=== PATIENT | male | born 1985 | race Caucasian/White ===

== ENCOUNTER 2016-11-17 00:31 | Emergency (ER) | payer BC, OTHER ==
[2016-11-17 00:40] VITALS: BP 138/90
[2016-11-17] MEDS ORDERED: Ondansetron 4 MG Tab.DIS PO ONE (01:23)
[2016-11-17] MEDS ORDERED: Ketorolac 60 MG/2 ML SDV IM ONE (01:23)
[2016-11-17] MEDS ORDERED: Tamsulosin 0.4 MG Cap.ER PO ONE (01:24)
[2016-11-17] MEDS ORDERED: HYDROmorphone 1 MG/ML Syringe IM ONE (01:24)
--- NOTE | 2016-11-17 01:25 | EDM.PDOC ---
ED HPI GENERAL MEDICAL PROBLEM - General Chief Complaint: Back Pain or Injury Stated Complaint: back pain Time Seen by Provider: 11/17/16 01:10 Source of Information: Reports: Patient History Limitations: Reports: No Limitations - History of Present Illness INITIAL COMMENTS - FREE TEXT/NARRATIVE: Patient woken from sleep with sudden left lower back pain. Pain was severe, . Episode of emesis. Now 09/29. Had similar episode 2011. At that time it was thought to be due to musculo-skeletal cause and eventually resolved. Denies urinary changes such as frequency or hematuria. No bowel changes. No abdominal pain. Pain does not radiate. No numbness/tingling or neuro changes. No recent injuries. Denies other chronic health problems. Left Lower Back Pain Score (Numeric/FACES): 8 - Related Data Allergies Allergy/AdvReac Type Severity Reaction Status Date / Time No Known Allergies Allergy Verified 11/17/16 00:32 Home Meds: Home Meds Acetaminophen 1,000 mg PO DAILY 11/17/16 [History] Acetaminophen/oxyCODONE [Percocet 325-5 MG] 1 tab PO Q6H #20 tablet 11/17/16 [Rx ] Ibuprofen [Ibuprofen Ib] 600 mg PO DAILY PRN 11/17/16 [History] Ketorolac [Toradol] 10 mg PO Q6H PRN #20 tablet 11/17/16 [Rx] Ondansetron [Zofran ODT] 4 mg PO Q6H PRN #10 tab.dis 11/17/16 [Rx] Tamsulosin [Flomax] 0.4 mg PO DAILY #10 cap.er 11/17/16 [Rx] Past Medical History Musculoskeletal History: Reports: Other (See Below) (previous episodes of back pain) ED ROS GENERAL - Review of Systems Review Of Systems: See Below Constitutional: Reports: No Symptoms HEENT: Reports: No Symptoms Respiratory: Reports: No Symptoms Cardiovascular: Reports: No Symptoms Endocrine: Reports: No Symptoms GI/Abdominal: Reports: Nausea, Vomiting. Denies: Abdominal Pain, Constipation, Diarrhea : Reports: Flank Pain. Denies: Dysuria, Frequency, Hematuria, Incontinence, Pain, Urgency, Urinary Retention Musculoskeletal: Reports: Back Pain Skin: Reports: No Symptoms Neurological: Reports: No Symptoms Psychiatric: Reports: No Symptoms Hematologic/Lymphatic: Reports: No Symptoms ED EXAM,LOWER BACK PAIN/INJURY - Physical Exam Exam: See Below Exam Limited By: No Limitations General Appearance: Alert, WD/WN, Moderate Distress Eye Exam: Bilateral Eye: EOMI, PERRL Ears: Normal External Exam Nose: Normal Inspection Throat/Mouth: Normal Inspection, Normal Lips, Normal Voice, No Airway Compromise Head: Atraumatic, Normocephalic Neck: Supple, Non-Tender Respiratory/Chest: No Respiratory Distress, Lungs Clear, Normal Breath Sounds, No Accessory Muscle Use Cardiovascular: Normal Peripheral Pulses, Regular Rate, Rhythm, No Edema, No Murmur GI/Abdominal: Normal Bowel Sounds, Soft, Non-Tender, No Distention, No Mass (Male) Exam: Deferred Rectal (Males) Exam: Deferred Back Exam: CVA Tenderness (L). No: Muscle Spasm, Paraspinal Tenderness, Vertebral Tenderness Extremities: Normal Inspection, Normal Range of Motion, Non-Tender, No Pedal Edema, Normal Capillary Refill Neurological: Alert, Normal Mood/Affect, Normal Gait, No Motor/Sensory Deficits , Oriented x 3 Psychiatric: Normal Affect, Normal Mood Skin Exam: Warm, Dry, Intact, Normal Color Course - Vital Signs Last Recorded V/S: Last Vital Signs Temp 36.6 C 11/17/16 00:39 Pulse 83 11/17/16 00:39 Resp 20 11/17/16 00:39 BP 138/90 11/17/16 00:39 Pulse Ox 98 11/17/16 00:39 - Orders/Labs/Meds Orders: Active Orders 24 hr Category Date Time Status Obtain Past Medical Record [OM.PC] Routine Oth 11/17/16 00:44 Active Labs: Laboratory Tests 11/17/16 Range/Units 00:47 Specimen Type Urincc Urine Color Yellow Urine Appearance Slightly cloudy Urine pH 5.5 (5.0-9.0) Ur Specific Mcguffey 1.025 (1.005-1.030) Urine Protein Trace H (NEGATIVE) mg/dL Urine Glucose (UA) Negative (NEGATIVE) mg/dL Urine Ketones Negative (NEGATIVE) mg/dL Urine Occult Blood Large H (NEGATIVE) Urine Nitrite Negative (NEGATIVE) Urine Bilirubin Negative (NEGATIVE) Urine Urobilinogen 0.2 (0.2-1.0) E.U./dL Ur Leukocyte Esterase Negative (NEGATIVE) Urine RBC 75-100 H /HPF Urine WBC 0-5 /HPF Ur Epithelial Cells Occasional /LPF Urine Bacteria Occasional (NONE TO FEW) /HPF Hyaline Casts Rare H (NEGATIVE) /LPF Urine Mucus Few H (NEGATIVE) /LPF Meds: Medications Discontinued Medications Generic Name Dose Route Start Last Admin Trade Name Freq PRN Reason Stop Dose Admin Hydromorphone HCl 1 mg 11/17/16 01:24 11/17/16 01:34 Dilaudid IM 11/17/16 01:25 1 mg ONETIME ONE Administration Ketorolac Tromethamine 60 mg 11/17/16 01:23 11/17/16 01:33 Toradol IM 11/17/16 01:24 60 mg ONETIME ONE Administration Ondansetron HCl 4 mg 11/17/16 01:23 11/17/16 01:32 Zofran Odt PO 11/17/16 01:24 4 mg ONETIME ONE Administration Tamsulosin HCl 0.4 mg 11/17/16 01:24 11/17/16 01:32 Flomax PO 11/17/16 01:25 0.4 mg ONETIME ONE Administration - Re-Assessments/Exams Free Text/Narrative Re-Assessment/Exam: 11/17/16 01:31 UA showed large amount of blood. Strongly suspect kidney stone. Patient declines having a CT performed at this time. Declines IV hydration. Would like to get medication for nausea and pain and go home. Agrees to strain urine. Extensive precautions discussed prior to discharge. He knows that CT is recommended if he continues to have pain and does not pass the stone within the next few days. 11/17/16 01:46 Cautioned not to use other NSAIDs while using Toradol. Sent home with take home pack of Toradol and Phenergan. Departure - Departure Time of Disposition: 01:47 Disposition: Home, Self-Care 01 Condition: Good Clinical Impression: Left low back pain Qualifiers: Chronicity: acute Sciatica presence: without sciatica Qualified Code(s): M54.5 - Low back pain Clinical Impression: (Ruled Out): Left flank pain - Discharge Information Prescriptions: Acetaminophen/oxyCODONE [Percocet 325-5 MG] 1 tab PO Q6H #20 tablet Ketorolac [Toradol] 10 mg PO Q6H PRN #20 tablet PRN Reason: Pain Ondansetron [Zofran ODT] 4 mg PO Q6H PRN #10 tab.dis PRN Reason: Nausea Tamsulosin [Flomax] 0.4 mg PO DAILY #10 cap.er Instructions: Renal Colic, [id number], Kidney Stones, [id number] Referrals: PCP,None [Primary Care Provider] - Forms: ED Department Discharge Additional Instructions: At that point in time, we strongly suspect that you are having symptoms consistent with having a kidney stone. Strain urine to screen for stones. If you find any, save them and bring them to you doctor to have them analyzed. Keep well hydrated. Drink plenty of water to help flush your system. If pain does not resolve/you don't pass a stone within the next 2 days, recommend CT study to look for a stone and if one is found, determine how large it is. Sometimes they are too large to pass on their own. Sometimes the pain is severe enough and nausea is severe enough that you need to be admitted to the hospital. Return for re-evaluation if things are worsening. No Motrin/ibuprofen/Aleve while using Toradol. - My Orders Last 24 Hours: My Active Orders 11/17/16 00:44 Obtain Past Medical Record [OM.PC] Routine - Assessment/Plan Last 24 Hours: My Active Orders 11/17/16 00:44 Obtain Past Medical Record [OM.PC] Routine
== END 2016-11-17 02:10 | disposition home or self-care (01) ==
LOC: LL.ED 00:31
DX: M54.5 Low back pain (principal)
CPT/HCPCS: 81001; 96372; 99284; A9270; J1170; J1885

== ENCOUNTER 2017-02-14 09:47 | Emergency (ER) | payer OTHER ==
--- NOTE | 2017-02-14 09:55 | EDM.PDOC ---
ED HPI GENERAL MEDICAL PROBLEM - General Chief Complaint: Laceration Stated Complaint: i cut my hand Time Seen by Provider: 02/14/17 09:50 Source of Information: Reports: Family (), Old Records ([facility] chart/EMR) History Limitations: Reports: No Limitations - History of Present Illness INITIAL COMMENTS - FREE TEXT/NARRATIVE: The patient was brought to the emergency room by his via private automobile for evaluation of the laceration of his left hand, which he cut on a piece of broken glass in the trash at home at about 09:30 a.m. this morning. No history of known specific foreign body, paresthesias, neurological deficits, or other complaints or injuries. The patient is right-handed. He is uncertain when he had his last tetanus booster with possible tetanus booster about 7 years ago. The patient denies any chest pain/pressure, heart flutter, dizziness, orthostasis, orthopnea, diaphoresis, paresthesias, recent decreased exercise tolerance, or any other anginal-type symptoms. No recent history of abdominal pain, heartburn, nausea, diarrhea, melena, gross hematochezia, or any food intolerance, including fatty foods, etc.. The patient also denies any recent fever, cough, wheezing, dyspnea, etc.. Onset: Today, Sudden Onset Date: 02/14/17 Onset Time: 09:30 Duration: Constant Location: Reports: Upper Extremity, Left. Denies: Head, Face, Neck, Chest, Abdomen, Back, Pelvis, Upper Extremity, Right, Radiates to Quality: Reports: Ache, Throbbing Severity: Mild Improves with: Reports: None Worsens with: Reports: None Context: Reports: Trauma (As above) Associated Symptoms: Denies: Confusion, Chest Pain, Cough, Diaphoresis, Fever/ Chills, Headaches, Loss of Appetite, Malaise, Nausea/Vomiting, Seizure, Shortness of Breath, Syncope Treatments GANDY DANCER: Reports: Other (see below) (Wound was washed with tap water prior to arrival). Denies: Acetaminophen Left Head Pain Score (Numeric/FACES): 1 - Related Data Allergies Allergy/AdvReac Type Severity Reaction Status Date / Time No Known Allergies Allergy Verified 11/17/16 17:41 Past Medical History HEENT History: Reports: None. Denies: Allergic Rhinitis, Hard of Hearing, Impaired Vision, Retinal Detachment Cardiovascular History: Denies: Hypertension Genitourinary History: Reports: Renal Calculus, Other (See Below) Other Genitourinary History: Left-sided urolithiasis on 11/17/16 with spontaneous passage Musculoskeletal History: Reports: Arthritis, Back Pain, Chronic, Fracture, Osteoarthritis, Other (See Below) Other Musculoskeletal History: Right mid radial ulnar fracture at age 11 with requiring reduction under sedation; recurrent right knee dislocation last in January 2014 Endocrine/Metabolic History: Reports: Obesity/BMI 30+ Hematologic History: Reports: None. Denies: Anemia, Blood Transfusion(s), Iron Deficiency - Infectious Disease History Infectious Disease History: Reports: Chicken Pox - Past Imaging History Past Imaging History: Reports: CAT Scan (CT of the abdomen and pelvis using stone protocol on 11/09/16) Social & Family History - Family History Cardiac: Reports: Hypertension, Other (See Below) Other Cardiac Family History: Father with hypertension - Tobacco Use Smoking Status *Q: Never Smoker Tobacco Use Within Last Twelve Months: No Used Tobacco, but Quit: No Smoking Cessation Information Provided To Patient: No Second Hand Smoke Exposure: No Second Hand Smoke Education Provided: No - Caffeine Use Caffeine Use: Reports: Energy Drinks (1 can per day with previous use of 23 per day), Soda (2 sodas per day). Denies: Coffee, Tea - Recreational Drug Use Recreational Drug Use: No Drug Use in Last 12 Months: No Recreational Drug Type: Denies: Amphetamines (Speed), Cocaine, Heroin, Inhalants (Glues, Solvents, Aerosols), LSD (Acid), Marijuana/Hashish, Methamphetamine - Living Situation & Occupation Living situation: Reports: (2008, no children), with Family Occupation: Employed ([employer]) ED ROS GENERAL - Review of Systems Review Of Systems: ROS reveals no pertinent complaints other than HPI. ED EXAM, SKIN/RASH Exam: See Below Exam Limited By: No Limitations General Appearance: Alert, WD/WN, No Apparent Distress Head: Atraumatic, Normocephalic Neck: Normal Inspection, Supple, Non-Tender, Full Range of Motion. No: Lymphadenopathy (L), Lymphadenopathy (R), Thyromegaly Respiratory/Chest: No Respiratory Distress, Lungs Clear, Normal Breath Sounds, No Accessory Muscle Use, Chest Non-Tender. No: Pleural Rub, Retractions Cardiovascular: Normal Peripheral Pulses, Regular Rate, Rhythm, No Edema, No Gallop, No JVD, No Murmur, No Rub. No: Gallop/S3, Gallop/S4, Friction Rub Peripheral Pulses: 2+: Radial (L), Radial (R) GI/Abdominal: Normal Bowel Sounds, Soft, Non-Tender, No Organomegaly, No Distention, No Abnormal Bruit, No Mass, Other (Obese). No: Guarding (Male) Exam: Deferred Rectal (Males) Exam: Deferred Back Exam: Normal Inspection, Full Range of Motion. No: CVA Tenderness (L), CVA Tenderness (R), Muscle Spasm Extremities: Normal Range of Motion, No Pedal Edema, Normal Capillary Refill, Other (1 centimeter in length laceration over the extensor surface of the proximal aspect of the second metacarpal with no significant vascular or tendon injury and no evidence of foreign body). No: Non-Tender (Palpation pain over laceration sitemild) Neurological: Alert, Oriented, CN II-XII Intact, Normal Cognition, Normal Gait, No Motor/Sensory Deficits Psychiatric: Normal Affect, Normal Mood Skin: Wound/Incision (As above). No: Diaphoretic, Ecchymosis Location, Skin: Upper Extremity, Left Characteristics: Linear Associated features: Tenderness. No: Swelling Lymphatic: No Adenopathy ED SKIN PROCEDURES - Laceration/Wound Repair Left Middle Dorsal Hand Lac/Wound length In cm: 1.0 Appearance: Superficial, Clean Distal NVT: Neuro & Vascular Intact, No Tendon Injury Anesthetic Type: Local Local Anesthesia - Lidocaine (Xylocaine): 1% Plain Local Anesthetic Volume: 4cc Skin Prep: Providone-Iodine (Betadine) Saline Irrigation (cc's): 0 Exploration/Debridement/Repair: Wound Explored, In a Bloodless Field, Explored to Base, No Foreign Material Found Closed with: Sutures Suture Size: 4-0 # of Sutures: 2 Suture Type: Nylon, Interrupted, Simple Drain Placement: No Sterile Dressing Applied: Nurse Tetanus Status Addressed: Yes Complications: No Progress/Comments: Excellent results Course - Vital Signs Last Recorded V/S: Last Vital Signs Temp 36.6 C 02/14/17 10:04 Pulse 67 02/14/17 10:50 Resp 16 02/14/17 10:04 BP 135/96 H 02/14/17 10:50 Pulse Ox 100 02/14/17 10:04 Vital Signs - 24 hr 02/14/17 02/14/17 02/14/17 09:51 10:04 10:50 Temperature [ 36.6 C Temporal] Pulse, 75 75 67 Peripheral [ Right Pulse Oximetry] Respiratory 16 16 Rate Blood Pressure 143/96 H 143/96 H 135/96 H [Left Upper Arm ] O2 Sat by Pulse 100 100 Oximetry - Orders/Labs/Meds Orders: Active Orders 24 hr Category Date Time Status Vaccines to be Administered [RC] PER UNIT ROUTINE Care 02/14/17 09:57 Active Hand 2V Lt [CR] Stat Exams 02/14/17 09:56 Taken Obtain Past Medical Record [OM.PC] Routine Oth 02/14/17 09:55 Active Labs: None Meds: Medications Discontinued Medications Generic Name Dose Route Start Last Admin Trade Name Freq PRN Reason Stop Dose Admin Diphtheria/Tetanus/Acell Pertussis 0.5 ml 02/14/17 09:57 02/14/17 10:40 Adacel IM 02/14/17 09:58 0.5 ml .ONCE ONE Administration Lidocaine HCl 5 ml 02/14/17 09:56 02/14/17 10:42 Xylocaine-Mpf 1% INJECT 02/14/17 09:57 5 ml ONETIME ONE Administration Neomycin/Polymyxin/Bacitracin 1 each 02/14/17 09:56 02/14/17 10:42 Triple Antibiotic Oint TOP 02/14/17 09:57 1 each ONETIME ONE Administration - Radiology Interpretation Free Text/Narrative:: None Departure - Departure Time of Disposition: 11:40 Disposition: Home, Self-Care 01 Condition: Good Clinical Impression: Laceration, Obesity Hypertension Qualifiers: Hypertension type: essential hypertension Qualified Code(s): I10 - Essential ( primary) hypertension Osteoarthritis Qualifiers: Osteoarthritis location: multiple joints Osteoarthritis type: primary Qualified Code(s): M15.0 - Primary generalized (osteo)arthritis - Discharge Information Instructions: Laceration Care, Adult, [id number], Stitches, [place], or Adhesive Wound Closure, [id number], Heart-Healthy Eating Plan, Apmi-[id number], Fat and Cholesterol Restricted Diet Referrals: PCP,Unknown [Primary Care Provider] - Forms: ED Department Discharge Additional Instructions: 1. Follow up with your regular provider in 10-14 days for suture removal as directed. 2. Tylenol 650 mg by mouth every 4 hours and/or OTC ibuprofen 2-3 tabs by mouth every 6 hours with food as directed./needed. 3. Antibacterial soap wash/soak with subsequent antibacterial dressing such as Neosporin, etc. as directed 2 times per day until the wound or laceration site completely heals. Keep the area clean and dry with activity restrictions as discussed. 4. Continue to observe your blood pressure closely through your regular provider including at the above follow-up visit 5. Discontinue all energy drinks ORESTES and attempt to decrease your caffeine use 6. Low Fat, low cholesterol diet with weight loss and exercise in moderation as discussed - Problem List & Annotations (1) Laceration SNOMED Code(s): 657613978 Code(s): DXS0960 - Status: Acute Priority: High Current Visit: Yes Onset Date: 02/14/17 Annotation/Comment:: Overall good results of laceration repair as above. Wound care and activity restrictions discussed. DTaP given. (2) Hypertension SNOMED Code(s): 35899191 Code(s): I10 - ESSENTIAL (PRIMARY) HYPERTENSION Status: Acute Priority: Medium Current Visit: Yes Onset Date: 02/14/17 Annotation/Comment:: Continue to observe closely by his regular provider as per discharge instructions. He was strongly advised to decrease caffeine use including energy drinks, etc. Qualifiers: Hypertension type: essential hypertension Qualified Code(s): I10 - Essential (primary) hypertension (3) Osteoarthritis SNOMED Code(s): 579672265 Code(s): M19.90 - UNSPECIFIED OSTEOARTHRITIS, UNSPECIFIED SITE Status: Chronic Priority: Medium Current Visit: Yes Annotation/Comment:: Stable by history Qualifiers: Osteoarthritis location: multiple joints Osteoarthritis type: primary Qualified Code(s): M15.0 - Primary generalized (osteo)arthritis (4) Obesity SNOMED Code(s): 148708503 Code(s): E66.9 - OBESITY, UNSPECIFIED Status: Chronic Priority: Medium Current Visit: Yes Annotation/Comment:: Information for low-fat, low- cholesterol diet provided. Weight loss and excess in moderation discussed. Consider lipid profile by regular provider Qualifiers: Obesity type: due to excess calories Obesity classification: adult class 1 (BMI 30 - 34.9) Serious obesity comorbidity presence: without serious comorbidity - Problem List Review Problem List Initiated/Reviewed/Updated: Yes - My Orders Last 24 Hours: My Active Orders 02/14/17 09:55 Obtain Past Medical Record [OM.PC] Routine 02/14/17 09:56 Hand 2V Lt [CR] Stat 02/14/17 09:57 Vaccines to be Administered [RC] PER UNIT ROUTINE - Assessment/Plan Last 24 Hours: My Active Orders 02/14/17 09:55 Obtain Past Medical Record [OM.PC] Routine 02/14/17 09:56 Hand 2V Lt [CR] Stat 02/14/17 09:57 Vaccines to be Administered [RC] PER UNIT ROUTINE Assessment:: As above Plan: As above. Extensive precautions were given to the patient and his , who are in agreement with the treatment plan. See Patient Instructions for further treatment and plan.
[2017-02-14] MEDS ORDERED: Bacitracin/Neomycin/Polymyxin B Oint 0.9 GM U/D Packet TOP ONE (09:56)
[2017-02-14] MEDS ORDERED: Diphtheria,Pertussis(Acell),Tetanus Vaccine 0.5 ML SDV IM ONE (09:57)
[2017-02-14 11:15] VITALS: BP 135/96
== END 2017-02-14 11:55 | disposition home or self-care (01) ==
LOC: LL.ED 09:47
DX: S61.412A Laceration without foreign body of left hand, initial encounter (principal); E66.9 Obesity, unspecified; I10 Essential (primary) hypertension; M15.0 Primary generalized (osteo)arthritis; W25.XXXA Contact with sharp glass, initial encounter
CPT/HCPCS: 12001; 73120-LT; 90471; 90715; 99283

== ENCOUNTER 2024-08-05 10:17 | Emergency (ER) | payer BC, OTHER ==
[2024-08-05 11:38] VITALS: BP 123/89; PULSE 65
== END 2024-08-05 11:50 | disposition home or self-care (01) ==
LOC: LL.ED 10:17
DX: S62.366A Nondisplaced fracture of neck of fifth metacarpal bone, right hand, initial encounter for closed fracture (principal); E66.9 Obesity, unspecified; X50.9XXA Other and unspecified overexertion or strenuous movements or postures, initial encounter
CPT/HCPCS: 29125; 73110-RT; 73120-RT; 99283; 99283-25